=== PATIENT | female | born 1985 | race American Indian/Alaskan Native ===

== ENCOUNTER 2017-06-16 08:21 | Emergency (ER) | payer SELFPAY ==
[2017-06-16] MEDS ORDERED: CATAPRES ONE (08:59)
[2017-06-16 09:25] LABS: Bilirubin,Urine NEG (Negative); Blood,Urine NEG (Negative); Ketones,Urine NEG (Negative); Leukocyte Esterase,Urine LG (Negative); Nitrite,Urine NEG (Negative); Protein,Urine <15 mg/dL mg/dL (Negative)
[2017-06-16 09:34] LABS: WBC,Urine > 182.0 /HPF (0.0-6.0)
[2017-06-16 09:35] LABS: Bacteria,Urine 1+ /HPF (Negative); Mucus,Urine 2+ /HPF; Trichomonas,Urine Present /HPF
[2017-06-16 09:45] LABS: Basophils % (Auto) 1.1 % (0.0-1.8); Eosinophils % (Auto) 2.2 % (0.0-4.3); Hematocrit 33.3 % (30.3-42.9); Hemoglobin 10.7 gm/dl (10.1-14.3); Mean Corpuscular HGB Conc 32 % (30-34); Mean Corpuscular Volume 80 fl (79-97); Platelet Count 375 K/mm3 (140-440); Red Blood Count 4.14 M/mm3 (3.65-5.03); Red Cell Distribution Width 17.7 % (13.2-15.2); White Blood Count 4.5 K/mm3 (4.5-11.0)
[2017-06-16 09:47] LABS: Mean Corpuscular Hemoglobin 26 pg (28-32)
[2017-06-16 10:00] LABS: Anion Gap 14 mmol/L; BUN/Creatinine Ratio 25; Blood Urea Nitrogen 15 mg/dL (7-17); Calcium 9.3 mg/dL (8.4-10.2); Carbon Dioxide 28 mmol/L (22-30); Chloride 100.8 mmol/L (98-107); Glucose 93 mg/dL (65-100); Potassium 4.8 mmol/L (3.6-5.0); Sodium 138 mmol/L (137-145)
--- NOTE | 2017-06-16 14:48 | Emergency Department Report ---
ED Female HPI - General Chief complaint: Urogenital-Female Stated complaint: VAGINIA SWOLLEN Time Seen by Provider: 06/16/17 14:12 Source: patient Mode of arrival: Ambulatory Limitations: No Limitations - History of Present Illness Initial comments: Patient is 32 years old female with no significant past medical history, she presented to day with vaginal discharge and is swelling for the last 2 days. Patient admitted to multiple sexual partner and she thing that she has an STD. Patient denied any fever, no nausea no vomiting no abdominal pain. MD Complaint: vaginal discharge Radiation: suprapubic Are you Now?: No Associated Symptoms: vaginal discharge - Related Data Home Medications Medication Instructions Recorded Confirmed Last Taken amLODIPine [Norvasc] 10 mg PO DAILY 01/24/14 11/10/14 08/12/14 Previous Rx's Medication Instructions Recorded Last Taken Type Mupirocin [Bactroban 2%] 1 applicatio TP TID #1 tub 11/10/14 Unknown Rx Sulfamethoxazole/Trimethoprim 1 each PO BID #20 tablet 11/10/14 Unknown Rx [Bactrim Ds] Allergies Allergy/AdvReac Type Severity Reaction Status Date / Time lisinopril Allergy Swelling Verified 01/24/14 23:55 ED Review of Systems ROS: Stated complaint: VAGINIA SWOLLEN Other details as noted in HPI Comment: All other systems reviewed and negative Constitutional: denies: chills, fever ENT: denies: throat pain, dental pain Cardiovascular: denies: chest pain, palpitations, dyspnea on exertion, orthopnea Gastrointestinal: denies: abdominal pain, nausea, vomiting Neurological: denies: headache, weakness ED Past Medical Hx - Past Medical History Previous Medical History?: Yes Hx Hypertension: Yes Additional medical history: Trichomonas vaginosis, Vaginal delivery x 2 - Surgical History Past Surgical History?: Yes Additional Surgical History: tubal ligation / c section x 1 - Social History Smoking Status: Current Every Day Smoker Substance Use Type: Alcohol, Marijuana, Non Opiate Pain - Medications Home Medications: Home Medications Medication Instructions Recorded Confirmed Last Taken Type amLODIPine [Norvasc] 10 mg PO DAILY 01/24/14 11/10/14 08/12/14 History Mupirocin [Bactroban 2%] 1 applicatio TP TID #1 tub 11/10/14 Unknown Rx Sulfamethoxazole/Trimethoprim 1 each PO BID #20 tablet 11/10/14 Unknown Rx [Bactrim Ds] ED Physical Exam - General Limitations: No Limitations General appearance: alert, in no apparent distress - Head Head exam: Present: normocephalic - Respiratory Respiratory exam: Present: normal lung sounds bilaterally - Cardiovascular Cardiovascular Exam: Present: regular rate, normal rhythm, normal heart sounds - GI/Abdominal GI/Abdominal exam: Present: soft, normal bowel sounds. Absent: distended, tenderness, guarding, rebound, mass, bruit, pulsatile mass - Rectal Rectal exam: Present: deferred - Extremities Exam Extremities exam: Present: normal inspection - Back Exam Back exam: Present: normal inspection. Absent: CVA tenderness (R), CVA tenderness (L) - Neurological Exam Neurological exam: Present: alert, oriented X3, CN II-XII intact, normal gait - Skin Skin exam: Present: warm, normal color ED Course Vital Signs 06/16/17 06/16/17 08:34 13:31 Temperature 98.3 F 98.3 F Pulse Rate 75 69 Respiratory 20 16 Rate Blood Pressure 208/137 Blood Pressure 157/106 [Right] O2 Sat by Pulse 100 100 Oximetry ED Medical Decision Making - Lab Data Result diagrams: 06/16/17 09:23 06/16/17 09:23 Critical care attestation.: If time is entered above; I have spent that time in minutes in the direct care of this critically ill patient, excluding procedure time. ED Disposition Clinical Impression: Trichomonas vaginitis, UTI (urinary tract infection) Disposition: DC-01 TO HOME OR SELFCARE Is pt being admited?: No Condition: Stable Instructions: Trichomoniasis (ED), Urinary Tract Infection in Women (ED) Referrals: PRIMARY CARE, [Primary Care Provider] - 3-5 Days
[2017-06-16 15:05] VITALS: BP 171/112
[2017-06-16] MEDS ORDERED: CATAPRES PO ONE (15:05)
== END 2017-06-16 15:37 | disposition home or self-care (01) ==
LOC: ED 08:21
DX: A59.01 Trichomonal vulvovaginitis (principal); N93.0 Postcoital and contact bleeding; I10 Essential (primary) hypertension; F17.200 Nicotine dependence, unspecified, uncomplicated; F12.10 Cannabis abuse, uncomplicated; Z88.8 Allergy status to other drugs, medicaments and biological substances
CPT/HCPCS: 36415; 80048; 81001; 81025; 85025; 99283